=== PATIENT | male | born 1990 | race Two or more races ===

== ENCOUNTER 2020-02-13 19:38 | Emergency (ER) | payer SELFPAY ==
[~2020-02-13] VITALS: Ht 175.3 cm; Wt 67.8 kg
[2020-02-13 19:41] VITALS: BP 145/92
--- NOTE | 2020-02-13 19:58 | NUR ---
PT IN GOWN IN [facility]. DR FORRESTER AT . PT DENIES ANY NEEDS AT THIS TIME AND HAS CALL LIGHT WITHIN REACH. PT EDUCATED ON ER PROCESS AND VERBALIZES UNDERSTANDING.
== END 2020-02-13 21:26 | disposition home or self-care (01) ==
LOC: ED 20:09
DX: J02.8 Acute pharyngitis due to other specified organisms (principal); B97.89 Other viral agents as the cause of diseases classified elsewhere; F17.200 Nicotine dependence, unspecified, uncomplicated
CPT/HCPCS: 87081; 87880; 99283

== ENCOUNTER 2021-03-25 00:16 | Emergency (ER) | payer SELFPAY ==
[~2021-03-25] VITALS: Ht 177.8 cm; Wt 95.8 kg
--- NOTE | 2021-03-25 01:01 | NUR ---
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
[2021-03-25] MEDS ORDERED: DIAZEPAM 5 MG TABLET ONE (01:57)
[2021-03-25] MEDS ORDERED: HYDROcodone/APAP 5/325 TABLET ONE (01:57)
[2021-03-25] MEDS ORDERED: KETOROLAC 60 MG/2 ML ONE (01:57)
[2021-03-25] MEDS ORDERED: HYDROcodone/APAP 5/325 TABLET PO ONE (02:00)
[2021-03-25] MEDS ORDERED: KETOROLAC 60 MG/2 ML IM ONE (02:00)
[2021-03-25] MEDS ORDERED: DIAZEPAM 5 MG TABLET PO ONE (02:00)
[2021-03-25 02:26] VITALS: BP 125/74
== END 2021-03-25 02:37 | disposition home or self-care (01) ==
LOC: ED 01:38
DX: S16.1XXA Strain of muscle, fascia and tendon at neck level, initial encounter (principal); M25.522 Pain in left elbow; F17.200 Nicotine dependence, unspecified, uncomplicated; V49.49XA Driver injured in collision with other motor vehicles in traffic accident, initial encounter; Y93.89 Activity, other specified; Y92.410 Unspecified street and highway as the place of occurrence of the external cause; Y99.8 Other external cause status
CPT/HCPCS: 96372; 99283; J1885